=== PATIENT | male | born 1995 | race Two or more races ===

== ENCOUNTER 2018-09-02 14:27 | Emergency (ER) | payer MEDICAID ==
[~2018-09-02] VITALS: Ht 167.6 cm; Wt 80.7 kg
[2018-09-02 14:49] VITALS: BP 136/85
[2018-09-02] MEDS ORDERED: AZITHROMYCIN 250 MG TABLET PO ONE (16:00)
[2018-09-02] MEDS ORDERED: CEFTRIAXONE 250 MG IM ONE (16:00)
[2018-09-02] MEDS ORDERED: CEFTRIAXONE 250 MG ONE (16:14)
[2018-09-02] MEDS ORDERED: AZITHROMYCIN 250 MG TABLET ONE (16:14)
[2018-09-02] MEDS ORDERED: LIDOCAINE-MPF 1%, 2ML ONE (16:14)
== END 2018-09-02 16:41 | disposition home or self-care (01) ==
LOC: ED 16:30
DX: A60.01 Herpesviral infection of penis (principal)
CPT/HCPCS: 87491; 87591; 96372; 99283; J0696